=== PATIENT | male | born 1975 | race Caucasian/White ===

== ENCOUNTER 2020-11-23 20:28 | Emergency (ER) | payer BC ==
[~2020-11-23] VITALS: Ht 170.2 cm; Wt 113.4 kg
[~2020-11-23 20:28] MED LIST: DURAGESIC1 EAC2 TRANSDERM; EXFORGE PO; FISH OIL 1,0001 EAC5 PO; FLEXERIL PO; LODINE XL400 MG PO; MAGNESIUM100 MG PO; MULTIVITAMINS; NEURONTIN 300300 M1 PO; NORCO 5-325 TA1 EACH PO; OXYCODONE HCL15 MG PO; VITAMIN D400 UNI1 PO; ZOFRAN ODT4 MG SUBLING
[2020-11-23] MEDS ORDERED: VENTOLIN HFA 1818 GM INH (22:14)
[2020-11-23] MEDS ORDERED: MEDROLDOSEPACK PO (22:14)
[2020-11-23 22:26] VITALS: BP 174/87
== END 2020-11-23 22:28 | disposition home or self-care (01) ==
LOC: M.ERS 20:28
DX: B34.9 Viral infection, unspecified (principal); Z20.822 Contact with and (suspected) exposure to COVID-19; Z88.1 Allergy status to other antibiotic agents; Z90.89 Acquired absence of other organs; Z90.49 Acquired absence of other specified parts of digestive tract

== ENCOUNTER 2021-05-09 12:55 | Emergency (ER) | payer BC ==
[~2021-05-09] VITALS: Ht 170.2 cm; Wt 115.7 kg
[~2021-05-09 12:55] MED LIST changes: +MEDROLDOSEPACK PO; +VENTOLIN HFA 1818 GM INH
[2021-05-09] MEDS ORDERED: LEVOTHYROXINE100 MC1 IV (13:04)
[2021-05-09 14:12] VITALS: BP 158/98
== END 2021-05-09 14:13 | disposition home or self-care (01) ==
LOC: M.ERS 12:55
DX: S39.011A Strain of muscle, fascia and tendon of abdomen, initial encounter (principal); Z90.49 Acquired absence of other specified parts of digestive tract; Z90.89 Acquired absence of other organs; Z88.1 Allergy status to other antibiotic agents; X58.XXXA Exposure to other specified factors, initial encounter; Y93.89 Activity, other specified; Y92.89 Other specified places as the place of occurrence of the external cause; Y99.8 Other external cause status